=== PATIENT | female | born 1950 | race Caucasian/White ===

== ENCOUNTER 2020-08-08 22:03 | Emergency (ER) | payer MEDICARE, OTHER ==
[2020-08-08 23:27] LABS: HEMOGLOBIN 12.5 gm/dl (12.3-15.3); RED BLOOD COUNT 4.59 M/UL (4.00-5.10); WHITE BLOOD COUNT 6.4 K/UL (4.5-11.0)
[2020-08-08 23:46] LABS: BUN/CREATININE RATIO 15 (0-10)
[2020-08-09] MEDS ORDERED: OMNICEF 300 MG300 MG PO (01:53)
== END 2020-08-09 02:16 | disposition home or self-care (01) ==
LOC: ER1 22:03
PROVIDERS: Emergency Medicine
DX: U07.1 COVID-19 (principal); J12.82 Pneumonia due to coronavirus disease 2019; N39.0 Urinary tract infection, site not specified; I10 Essential (primary) hypertension; E11.9 Type 2 diabetes mellitus without complications
CPT/HCPCS: 71045; 80053; 81001; 82550; 82553; 83605; 83690; 83880; 84484; 85025; 85610; 85730; 93005; 96365; 99285; J0696; Q9967

== ENCOUNTER 2020-08-16 18:51 | Inpatient (IN) | payer MEDICARE, OTHER ==
[~2020-08-16] VITALS: Ht 160 cm; Wt 79.4 kg
[~2020-08-16 18:51] MED LIST: OMNICEF 300 MG300 MG PO
[2020-08-16 19:55] LABS: RED BLOOD COUNT 4.06 M/UL (4.00-5.10); WHITE BLOOD COUNT 13.1 K/UL (4.5-11.0)
[2020-08-16 20:21] LABS: BUN/CREATININE RATIO 15 (0-10)
[2020-08-17 06:29] LABS: HEMOGLOBIN 10.5 gm/dl (12.3-15.3); RED BLOOD COUNT 3.89 M/UL (4.00-5.10)
[2020-08-17 06:35] LABS: WHITE BLOOD COUNT 7.2 K/UL (4.5-11.0)
[2020-08-17 07:02] LABS: BUN/CREATININE RATIO 25 (0-10)
[2020-08-17] MEDS ORDERED: SYNTHROID137 MCG PO (16:05)
[2020-08-17] MEDS ORDERED: NEURONTIN300 MG PO (16:06)
[2020-08-17] MEDS ORDERED: VITAMIN D31250 MCG PO (16:06)
[2020-08-17] MEDS ORDERED: TOPROL XL50 MG PO (16:08)
[2020-08-17] MEDS ORDERED: LOPID TAB 600600 MG PO (16:09)
[2020-08-17] MEDS ORDERED: ASPIRIN CHEWABL81 MG PO (16:09)
[2020-08-17] MEDS ORDERED: AMBIEN5 MG PO (16:10)
[2020-08-17] MEDS ORDERED: OMEPRAZOLE40 MG PO (16:10)
[2020-08-17] MEDS ORDERED: ALDACTONE25 MG PO (16:10)
[2020-08-17] MEDS ORDERED: CYCLOBENZAPRINE10 MG PO (16:11)
[2020-08-17] MEDS ORDERED: ZOLOFT50 MG PO (16:12)
[2020-08-17] MEDS ORDERED: LEVEMIR FL100 UNIT/1 SQ (16:12)
[2020-08-17] MEDS ORDERED: DOXYCYCLINE HY100 MG PO (16:17)
[2020-08-17] MEDS ORDERED: PULMICORT1 MG/2 ML INH (16:17)
[2020-08-17] MEDS ORDERED: LEVALBUTER1.25 MG/3 INH (16:18)
[2020-08-18 04:39] LABS: HEMOGLOBIN 10.2 gm/dl (12.3-15.3); RED BLOOD COUNT 3.84 M/UL (4.00-5.10)
[2020-08-18 04:51] LABS: WHITE BLOOD COUNT 12.8 K/UL (4.5-11.0)
[2020-08-18 05:00] LABS: BUN/CREATININE RATIO 32 (0-10)
[2020-08-18 13:13] LABS: ANTI-DSDNA ANTIBODIES <1 IU/mL (0-9)
[2020-08-18 16:13] LABS: ATYPICAL PANCA <1:20 titer (Neg:<1:20); CYTOPLASMIC (C-ANCA) <1:20 titer (Neg:<1:20); PERINUCLEAR (P-ANCA) <1:20 titer (Neg:<1:20)
[2020-08-19 11:48] LABS: HEMOGLOBIN 10.2 gm/dl (12.3-15.3); RED BLOOD COUNT 3.86 M/UL (4.00-5.10); WHITE BLOOD COUNT 17.6 K/UL (4.5-11.0)
[2020-08-19 12:11] LABS: BUN/CREATININE RATIO 37 (0-10)
[2020-08-19 15:13] LABS: ANTIMYELOPEROXIDASE (MPO) ABS <9.0 U/mL (0.0-9.0); ANTIPROTEINASE 3 (PR-3) ABS <3.5 U/mL (0.0-3.5); ATYPICAL PANCA <1:20 titer (Neg:<1:20); CYTOPLASMIC (C-ANCA) <1:20 titer (Neg:<1:20); PERINUCLEAR (P-ANCA) <1:20 titer (Neg:<1:20)
[2020-08-20 09:29] LABS: HEMOGLOBIN 10.4 gm/dl (12.3-15.3); RED BLOOD COUNT 3.94 M/UL (4.00-5.10); WHITE BLOOD COUNT 19.3 K/UL (4.5-11.0)
[2020-08-20 09:55] LABS: BUN/CREATININE RATIO 36 (0-10)
[2020-08-21 02:52] LABS: RED BLOOD COUNT 3.82 M/UL (4.00-5.10); WHITE BLOOD COUNT 20.2 K/UL (4.5-11.0)
[2020-08-21 03:12] LABS: BUN/CREATININE RATIO 40 (0-10)
[2020-08-23 03:13] LABS: HEMOGLOBIN 10.5 gm/dl (12.3-15.3); RED BLOOD COUNT 3.9 M/UL (4.00-5.10)
[2020-08-23 03:40] LABS: BUN/CREATININE RATIO 31 (0-10)
[2020-08-24 04:30] LABS: BUN/CREATININE RATIO 42 (0-10)
[2020-08-24] MEDS ORDERED: PREDNISONE 20 M20 MG PO (10:26)
[2020-08-24] MEDS ORDERED: ALPRAZOLAM0.5 MG PO (10:26)
--- NOTE | 2020-08-24 16:13 | NUR ---
REPORT CALLED TO NIKHIL AT [facility] AT 1400. PATIENT NOTIFIED THAT [facility] WILL SEE [facility] TOMOR[facility].
== END 2020-08-24 14:01 | disposition home or self-care (01) | DRG 542 ==
LOC: ER1 18:51 → PROG CARE 22:38 → ZEROF 22:38 → PROG CARE 08-17 17:49
PROVIDERS: Family Medicine; Internal Medicine; Internal Medicine Infectious Disease; Internal Medicine Pulmonary Disease; Nurse Practitioner Family; ADMIT Internal Medicine
PROC: 0B9D8ZX Drainage of Right Middle Lung Lobe, Via Natural or Artificial Opening Endoscopic, Diagnostic (ICD-10-PCS; 2020-08-18)
PROC: 0B9H8ZX Drainage of Lung Lingula, Via Natural or Artificial Opening Endoscopic, Diagnostic (ICD-10-PCS; principal; 2020-08-18 08:30)
PROC: B24BZZZ Ultrasonography of Heart with Aorta (ICD-10-PCS; 2020-08-20)
DX: M31.30 Wegener's granulomatosis without renal involvement (principal); J96.01 Acute respiratory failure with hypoxia; R04.2 Hemoptysis; E66.2 Morbid (severe) obesity with alveolar hypoventilation; Z68.31 Body mass index [BMI] 31.0-31.9, adult; E11.65 Type 2 diabetes mellitus with hyperglycemia; E87.6 Hypokalemia; I16.0 Hypertensive urgency; F41.9 Anxiety disorder, unspecified; Z86.16 Personal history of COVID-19; E03.9 Hypothyroidism, unspecified; Z90.49 Acquired absence of other specified parts of digestive tract; Z90.710 Acquired absence of both cervix and uterus; Z88.8 Allergy status to other drugs, medicaments and biological substances; Z79.82 Long term (current) use of aspirin; Z79.890 Hormone replacement therapy; Z79.4 Long term (current) use of insulin; Z79.899 Other long term (current) drug therapy
CPT/HCPCS: ECHO; 36415; 36600; 71045; 80048; 80053; 80202; 82550; 82553; 82803; 82962; 83520; 83605; 83735; 83874; 83880; 84132; 84484; 85025; 85610; 85652; 86038; 86140; 86225; 86256; 86900; 86901; 87015; 87040; 87070; 87116; 87205; 87206; 87252; 93005; 93306; 94664; 94760; 96365; 96366; 96368; 96375; 96376; 97161; 99285; J1100; J1335; J1940; J2001; J2405; J2704; J2930; J3370; J7030; J7040; J7070; Q9967; U0002

== ENCOUNTER → 2020-09-15 | Outpatient (CLI) | payer MEDICARE, OTHER ==
[~2020-09-15] VITALS: Ht 160 cm; Wt 77.1 kg
[~2020-09-15] MED LIST changes: +ALDACTONE25 MG PO; +ALPRAZOLAM0.5 MG PO; +AMBIEN5 MG PO; +ASPIRIN CHEWABL81 MG PO; +CYCLOBENZAPRINE10 MG PO; +DOXYCYCLINE HY100 MG PO; +LEVALBUTER1.25 MG/3 INH; +LEVEMIR FL100 UNIT/1 SQ; +LOPID TAB 600600 MG PO; +NEURONTIN300 MG PO; +OMEPRAZOLE40 MG PO; +PREDNISONE 20 M20 MG PO; +PULMICORT1 MG/2 ML INH; +SYNTHROID137 MCG PO; +TOPROL XL50 MG PO; +VITAMIN D31250 MCG PO; +ZOLOFT50 MG PO
== END ==
LOC: OPSV 07:00
DX: M31.30 Wegener's granulomatosis without renal involvement (principal)
CPT/HCPCS: 96365; 96366; 96413; 96415; J7030; J9312

== ENCOUNTER → 2020-09-29 | Outpatient (CLI) | payer MEDICARE, OTHER ==
[~2020-09-29] VITALS: Ht 160 cm; Wt 77.1 kg
== END ==
LOC: OPSV 08:00
DX: M31.30 Wegener's granulomatosis without renal involvement (principal)
CPT/HCPCS: 96365; 96366; 96413; 96415; J7030; J9312

== ENCOUNTER → 2020-11-02 | Outpatient (CLI) | payer MEDICARE, OTHER | LOC: HEART 5 17:00 | DX: I77.6 Arteritis, unspecified (principal); R06.02 Shortness of breath | CPT/HCPCS: 94010; 94729 ==

== ENCOUNTER → 2020-12-02 | Outpatient (CLI) | payer MEDICARE, OTHER | LOC: KOH-I 14:00 | DX: I77.6 Arteritis, unspecified (principal); I31.3 Pericardial effusion (noninflammatory) | CPT/HCPCS: 71250 ==